=== PATIENT | male | born 1990 | race Caucasian/White ===

== ENCOUNTER → 2019-04-13 20:35 | Emergency (ER) | payer OTHER ==
[~2019-04-13 20:35] MED LIST: Penicillin VK TAB* 250 MG PO ONE
[2019-04-13 20:41] VITALS: BP 123/76
--- NOTE | 2019-04-13 21:09 | ED ---
Throat Pain/Nasal Congestion - HPI Summary HPI Summary: Patient complains of right lower dental pain starting yesterday. History of multiple dental caries. Denies purulent drainage from mouth, fever, cough, sore throat, CV, SOB, N/V/V abdominal pain, change in urine, change in BM - History of Current Complaint Chief Complaint: EDDentalPain Time Seen by Provider: 04/13/19 20:51 Hx Obtained From: Patient Onset/Duration: Gradual Onset, Lasting Days Severity: Moderate Associated Signs And Symptoms: Positive: Negative Cough: None - Allergies/Home Medications Allergies/Adverse Reactions: Allergies Allergy/AdvReac Type Severity Reaction Status Date / Time Cephalosporins Allergy Hives Verified 04/13/19 20:41 Home Medications: Home Medications ALPRAZolam [Alprazolam Xr] 1 mg PO BEDTIME 04/13/19 [History Confirmed 04/13/19] Buprenorphine HCl/Naloxone HCl [Buprenorp-Nalox 8-2 mg Sl Film] 1 film SL FILM BEDTIME 04/13/19 [History Confirmed 04/13/19] Mirtazapine 30 mg PO BEDTIME 04/13/19 [History Confirmed 04/13/19] cloNIDine TAB* [Catapres 0.1 MG TAB*] 0.2 mg PO DAILY 04/13/19 [History Confirmed 04/13/19] tiZANidine TAB* [Zanaflex TAB*] 4 mg PO BEDTIME 04/13/19 [History Confirmed 09/21] PMH/Surg Hx/FS Hx/Imm Hx Endocrine/Hematology History: Denies: Hx Anticoagulant Therapy Cardiovascular History: Denies: Hx Pacemaker/ICD Respiratory History: Reports: Hx Asthma History: Denies: Hx Dialysis Sensory History: Denies: Hx Legally Blind Opthamlomology History: Denies: Hx Eye Prosthesis EENT History: Denies: Hx Deafness Neurological History: Denies: Hx Dementia Psychiatric History: Denies: Hx Autism Infectious Disease History: No Infectious Disease History: Denies: Traveled Outside the [place] in Last 30 Days - Family History Known Family History: Positive: Non-Contributory - Social History Alcohol Use: None Substance Use Type: Reports: None Smoking Status (MU): Never Smoked Tobacco Review of Systems Constitutional: Negative Eyes: Negative Positive: Dental Pain Cardiovascular: Negative Respiratory: Negative Gastrointestinal: Negative Genitourinary: Negative Musculoskeletal: Negative Skin: Negative Neurological: Negative Psychological: Normal All Other Systems Reviewed And Are Negative: Yes Physical Exam - Summary Physical Exam Summary: No oral lesions, apical abscess, purulent drainage noted. Multiple dental caries. Triage Information Reviewed: Yes Vital Signs On Initial Exam: Initial Vitals Temp Pulse Resp BP Pulse Ox 98.4 F 70 16 123/76 98 04/13/19 20:38 04/13/19 20:38 04/13/19 20:38 04/13/19 20:38 04/13/19 20:38 Vital Signs Reviewed: Yes Appearance: Positive: Well-Appearing Skin: Positive: Warm Head/Face: Positive: Normal Head/Face Inspection Eyes: Positive: Normal ENT: Positive: Normal ENT inspection Dental: Positive: Gross Decay/Caries @. Negative: Dental Fracture @, Abscess @ , Bleeding Neck: Positive: Supple Respiratory/Lung Sounds: Positive: Clear to Auscultation Cardiovascular: Positive: Normal Abdomen Description: Positive: Nontender Musculoskeletal: Positive: Normal Neurological: Positive: Normal Psychiatric: Positive: Normal AVPU Assessment: Alert - Nette Coma Scale Best Eye Response: 4 - Spontaneous Best Motor Response: 6 - Obeys Commands Best Verbal Response: 5 - Oriented Coma Scale Total: 15 Diagnostics - Vital Signs Vital Signs Temp Pulse Resp BP Pulse Ox 04/13/19 20:38 98.4 F 70 16 123/76 98 - Laboratory Lab Statement: Any lab studies that have been ordered have been reviewed, and results considered in the medical decision making process. EENT Course/Dx - Course Course Of Treatment: Patient complains of right lower dental pain starting yesterday. History of multiple dental caries. Denies purulent drainage from mouth, fever, cough, sore throat, CV, SOB, N/V/V abdominal pain, change in urine , change in BM. Physical exam:No oral lesions, apical abscess, purulent drainage noted. Multiple dental caries. Vital signs within normal limits. Rx for Pen-Vee K. Tylenol and ibuprofen for pain. Follow-up with dentist. - Diagnoses Provider Diagnoses: Pain, dental, Jaw pain Discharge - Sign-Out/Discharge Documenting (check all that apply): Patient Departure Patient Received Moderate/Deep Sedation with Procedure: No - Discharge Plan Condition: Stable Disposition: HOME Prescriptions: Ibuprofen [Ibu] 800 mg PO TID 7 Days #20 tablet Penicillin VK 500 MG TAB(NF) [Penicillin VK 500 mg Tab] 500 mg PO QID 7 Days # 28 tab Patient Education Materials: Toothache (ED) Referrals: Gato BETTS,Maicol Zurita [Primary Care Provider] - Additional Instructions: Follow-up with your dentist as soon as possible. Take antibiotics as directed. Alternate ibuprofen 800 mg and Tylenol 650 mg every 3 hours for pain. Return to the ED for any new or worsening symptoms. - Billing Disposition and Condition Condition: STABLE Disposition: Home
== END | disposition home or self-care (01) ==
LOC: ED 20:35
DX: K08.89 Other specified disorders of teeth and supporting structures (principal); K02.9 Dental caries, unspecified; R68.84 Jaw pain; Z88.1 Allergy status to other antibiotic agents
CPT/HCPCS: 99282; A9270-GY

== ENCOUNTER 2019-04-22 12:23 | Emergency (ER) | payer OTHER ==
[2019-04-22 14:49] VITALS: BP 136/85
--- NOTE | 2019-04-22 15:10 | ED ---
Throat Pain/Nasal Congestion - HPI Summary HPI Summary: Patient is a 28-year-old male presenting to the ED with decreased hearing in the right ear. He endorses a feeling of "fullness." He denies any pain. He states he has been sick for the past week and a half and is currently on antibiotics. He states despite the antibiotics, he continues to have decreased hearing. He denies any dizziness or lightheadedness. Symptoms are worse with positioning. He states symptoms are worse with lying flat and better in the upright position. Denies any rhinorrhea. Denies any tearing from the eyes. - History of Current Complaint Chief Complaint: EDEarPain Time Seen by Provider: 04/22/19 13:17 Hx Obtained From: Patient Onset/Duration: Gradual Onset Severity: Moderate Associated Signs And Symptoms: Positive: Negative - Epiglottits Risk Factors Epiglottis Risk Factors: Negative - Allergies/Home Medications Allergies/Adverse Reactions: Allergies Allergy/AdvReac Type Severity Reaction Status Date / Time Cephalosporins Allergy Hives Verified 04/22/19 12:49 PMH/Surg Hx/FS Hx/Imm Hx Previously Healthy: Yes Endocrine/Hematology History: Denies: Hx Anticoagulant Therapy Cardiovascular History: Denies: Hx Pacemaker/ICD Respiratory History: Reports: Hx Asthma History: Denies: Hx Dialysis Sensory History: Denies: Hx Eye Prosthesis, Hx Legally Blind, Hx Deafness Opthamlomology History: Denies: Hx Eye Prosthesis, Hx Legally Blind Neurological History: Denies: Hx Dementia Psychiatric History: Denies: Hx Autism - Immunization History Hx Pertussis Vaccination: No Immunizations Up to Date: Yes Infectious Disease History: No Infectious Disease History: Denies: Traveled Outside the [place] in Last 30 Days - Family History Known Family History: Positive: Non-Contributory - Social History Occupation: Unemployed Lives: With Family Alcohol Use: None Hx Substance Use: No Substance Use Type: Reports: None Smoking Status (MU): Never Smoked Tobacco Review of Systems Constitutional: Negative Negative: Fever, Chills, Fatigue, Skin Diaphoresis Positive: Ear Ache - right ear fullness Negative: Palpitations, Chest Pain Negative: Shortness Of Breath, Cough Genitourinary: Negative Positive: no symptoms reported, see HPI Negative: Arthralgia, Myalgia Skin: Negative Neurological: Negative All Other Systems Reviewed And Are Negative: Yes Physical Exam Triage Information Reviewed: Yes Vital Signs On Initial Exam: Initial Vitals Temp Pulse Resp BP Pulse Ox 98.8 F 68 14 133/85 97 04/22/19 12:44 04/22/19 12:44 04/22/19 12:44 04/22/19 12:44 04/22/19 12:44 Vital Signs Reviewed: Yes Appearance: Positive: Well-Appearing, Well-Nourished Skin: Positive: Warm, Skin Color Reflects Adequate Perfusion Head/Face: Positive: Normal Head/Face Inspection Eyes: Positive: Conjunctiva Clear ENT: Positive: Pharynx normal, Other - ear fullness to the R ear. Negative: Pharyngeal erythema, Nasal congestion, TM bulging, TM dull, TM red, Tonsillar swelling, Tonsillar exudate, Sinus tenderness Respiratory/Lung Sounds: Positive: Clear to Auscultation, Breath Sounds Present Cardiovascular: Positive: RRR Musculoskeletal: Positive: Strength/ROM Intact Neurological: Positive: Speech Normal Psychiatric: Positive: Affect/Mood Appropriate Diagnostics - Vital Signs Vital Signs Temp Pulse Resp BP Pulse Ox 04/22/19 14:40 97.5 F 58 14 136/85 99 04/22/19 12:44 98.8 F 68 14 133/85 97 - Laboratory Lab Statement: Any lab studies that have been ordered have been reviewed, and results considered in the medical decision making process. EENT Course/Dx - Course Course Of Treatment: During this course of treatment, the patient is evaluated for right sided decreased hearing. Denies any pain to this year. He states he feels fluid shifting inside the ear if he is lying flat or sitting upright. Symptoms are better with sitting upright, however symptoms remain despite sitting upright. He states he is unable to hear out of this ear. He has never had this issue in the past. Denies any drainage from the ear. He denies any fevers, sweats, chills. Vital signs stable on arrival. Physical examination, patient appears well, nontoxic appearing. No conjunctival injection or rhinorrhea. Lungs CTA. RRR. TMs bilaterally show no erythema. To the right ear there are signs of serous otitis with fluid behind TM. No cerumen impaction. Patient is encouraged follow-up with ENT if symptoms do not resolve. He is given activities for releasing pressure in the ears as well as encouraged steroids, afrin and zac to try and reduce the fluid. - Diagnoses Provider Diagnoses: Serous otitis media Discharge - Sign-Out/Discharge Documenting (check all that apply): Patient Departure Patient Received Moderate/Deep Sedation with Procedure: No - Discharge Plan Condition: Stable Disposition: HOME Prescriptions: Fexofenadine/Pseudoephedrine [Zac-D 24 Hour Tablet] 1 each PO DAILY #10 tab.er.24h Oxymetazoline 0.05% NASAL SPR* [Afrin 0.05% NASAL SPRAY*] 1 spray NASAL Q8H #1 btl predniSONE TAB* [Deltasone TAB*] 50 mg PO DAILY #5 tab MDD 1 Patient Education Materials: Serous Otitis Media (ED) Referrals: Richard Evans MD [Medical Doctor] - Gato BETTS,Maicol Zurita [Primary Care Provider] - Additional Instructions: Try forced exhalation with closed mouth and nose, blowing up a balloon through each nostril or bearing down to release pressure Prednisone once daily x 5 days zac once daily x 10 days afrin three times daily - Billing Disposition and Condition Condition: STABLE Disposition: Home
== END 2019-04-22 14:40 | disposition home or self-care (01) ==
LOC: ED 12:23
DX: H65.91 Unspecified nonsuppurative otitis media, right ear (principal)
CPT/HCPCS: 99282

== ENCOUNTER 2019-07-06 00:44 | Emergency (ER) | payer OTHER ==
[2019-07-06] MEDS ORDERED: Penicillin VK TAB* 250 MG PO ONE ×2 (01:11→01:12)
--- NOTE | 2019-07-06 01:16 | ED ---
Throat Pain/Nasal Congestion - HPI Summary HPI Summary: 28-year-old male presents with dental pain for the past couple days. He has a history of dental infections. He is waiting to get implants to have teeth removed. has had this in the past. States needs an antibiotic to help fight the infection. Denies any swelling. No fevers. No chest pain or shortness breath. No sore throat. has pain on bilateral lower teeth. Has been using peroxide to rinse his mouth. Has been taking Excedrin for the pain. He is on Suboxone. No fevers. - History of Current Complaint Chief Complaint: EDDentalPain Time Seen by Provider: 07/06/19 01:02 - Allergies/Home Medications Allergies/Adverse Reactions: Allergies Allergy/AdvReac Type Severity Reaction Status Date / Time Cephalosporins Allergy Hives Verified 07/06/19 00:46 PMH/Surg Hx/FS Hx/Imm Hx Endocrine/Hematology History: Denies: Hx Anticoagulant Therapy Cardiovascular History: Denies: Hx Pacemaker/ICD Respiratory History: Reports: Hx Asthma History: Denies: Hx Dialysis Sensory History: Denies: Hx Eye Prosthesis, Hx Legally Blind, Hx Deafness Opthamlomology History: Denies: Hx Eye Prosthesis, Hx Legally Blind Neurological History: Denies: Hx Dementia Psychiatric History: Denies: Hx Autism Infectious Disease History: No Infectious Disease History: Denies: Traveled Outside the [place] in Last 30 Days - Family History Known Family History: Positive: Non-Contributory - Social History Alcohol Use: None Hx Substance Use: No Substance Use Type: Reports: None Smoking Status (MU): Never Smoked Tobacco Review of Systems Negative: Fever Positive: Dental Pain Negative: Chest Pain Negative: Shortness Of Breath All Other Systems Reviewed And Are Negative: Yes Physical Exam Triage Information Reviewed: Yes Vital Signs On Initial Exam: Initial Vitals Temp Pulse Resp BP Pulse Ox 97.8 F 75 16 135/96 98 07/06/19 00:45 07/06/19 00:45 07/06/19 00:45 07/06/19 00:45 07/06/19 00:45 Vital Signs Reviewed: Yes Appearance: Positive: Well-Appearing Skin: Positive: Warm, Dry Head/Face: Positive: Normal Head/Face Inspection Eyes: Positive: Normal, EOMI, DAMON, Conjunctiva Clear ENT: Positive: Normal ENT inspection, Pharynx normal, TMs normal Dental: Positive: Percussion Tenderness @ - lower posterior teeth on bilateral sides, Gross Decay/Caries @ - throughout. Negative: Abscess @ Neck: Positive: Supple, Nontender, No Lymphadenopathy Respiratory/Lung Sounds: Positive: Clear to Auscultation, Breath Sounds Present Cardiovascular: Positive: Normal, RRR Abdomen Description: Positive: Nontender, Soft Bowel Sounds: Positive: Present Musculoskeletal: Positive: Normal Neurological: Positive: Normal Psychiatric: Positive: Normal Diagnostics - Vital Signs Vital Signs Temp Pulse Resp BP Pulse Ox 07/06/19 00:45 97.8 F 75 16 135/96 98 - Laboratory Lab Statement: Any lab studies that have been ordered have been reviewed, and results considered in the medical decision making process. EENT Course/Dx - Course Course Of Treatment: 28-year-old male presents with dental pain for the past couple days. He has a history of dental infections. He is waiting to get implants to have teeth removed. has had this in the past. States needs an antibiotic to help fight the infection. Denies any swelling. No fevers. No chest pain or shortness breath. No sore throat. States has pain on bilateral lower teeth. Has been using peroxide to rinse his mouth. Has been taking Excedrin for the pain. He is on Suboxone. No fevers. On exam has poor dentition noted. No abscess seen. Will treat with penicillin. Gave chlorhexidine mouthwash to use. Told to follow up with dentist. Patient understands agrees with plan. - Differential Diagnoses Differential Diagnoses: Dental Abscess, Dental Caries, Fractured Tooth - Diagnoses Provider Diagnoses: Dental infection Discharge ED - Sign-Out/Discharge Documenting (check all that apply): Patient Departure Patient Received Moderate/Deep Sedation with Procedure: No - Discharge Plan Condition: Good Disposition: HOME Prescriptions: Chlorhexidine MOUTHWASH 0.12%* [Peridex Mouth Wash 0.12%*] 15 ml MT BID #1 btl Penicillin VK TAB* [Penicillin VK 250 mg Tab*] 500 mg PO QID #28 tab Patient Education Materials: Toothache (ED) Referrals: Gato BETTS,Maicol Zurita [Primary Care Provider] - Additional Instructions: Take antibiotic four a day for 7 days use clorhexidine 15ml after brushing teeth daily Use ibuprofen or tyenlol for pain every 6 hours Follow up with dentist as soon as possible Return to ED if develop any new or worsening symptoms - Billing Disposition and Condition Condition: GOOD Disposition: Home
[2019-07-06 01:26] VITALS: BP 132/54
== END 2019-07-06 01:25 | disposition home or self-care (01) ==
LOC: ED 00:44
DX: K04.7 Periapical abscess without sinus (principal); J45.909 Unspecified asthma, uncomplicated; Z79.899 Other long term (current) drug therapy; Z88.1 Allergy status to other antibiotic agents
CPT/HCPCS: 99282; A9270-GY

== ENCOUNTER 2019-07-30 18:34 | Emergency (ER) | payer OTHER ==
--- NOTE | 2019-07-30 19:46 | ED ---
Throat Pain/Nasal Congestion - HPI Summary HPI Summary: 28 year old M presenting to [facility] complains of worsening dental pain in his bilateral lower and left upper third molars rated 5/10 in severity with associated diaphoresis x1 month. Symptoms aggravated by nothing. Symptoms alleviated by antibiotics. The patient states he has taken 2 courses of antibiotics over the last month, the first being penicillin for 2.5 weeks followed by the second being Augmentin for 10 days which he is currently taking. Patient is followed by Deric Easton. Patient states he saw his dentist last week. Patient states he is in the process of getting his lower molars removed but needs prior authorization from his insurance. Denies fevers. Pain w eating but tolerating PO. - History of Current Complaint Chief Complaint: EDDentalPain Time Seen by Provider: 07/30/19 19:28 Hx Obtained From: Patient Onset/Duration: Still Present - Allergies/Home Medications Allergies/Adverse Reactions: Allergies Allergy/AdvReac Type Severity Reaction Status Date / Time Cephalosporins Allergy Hives Verified 07/30/19 18:41 Iodinated Contrast Media Allergy Nausea And Verified 07/30/19 20:46 Vomiting PMH/Surg Hx/FS Hx/Imm Hx Respiratory History: Reports: Hx Asthma Sensory History: Denies: Hx Legally Blind, Hx Deafness Opthamlomology History: Denies: Hx Legally Blind - Surgical History Surgery Procedure, Year, and Place: knee - Immunization History Immunizations Up to Date: Yes Infectious Disease History: No Infectious Disease History: Denies: Traveled Outside the [place] in Last 30 Days - Family History Known Family History: Positive: Hypertension, Diabetes - Social History Alcohol Use: Rare Hx Substance Use: No Substance Use Type: Reports: None Smoking Status (MU): Never Smoked Tobacco Review of Systems Positive: Skin Diaphoresis Positive: Dental Pain - bilateral lower and left upper third molars All Other Systems Reviewed And Are Negative: Yes Physical Exam - Summary Physical Exam Summary: Constitutional: Well-developed, Well-nourished, Alert. (-) Distressed. Skin: Warm, Dry HENT: diffuse dental disease with caries of the bilateral lower and left upper third molars, no obvious abscess, no trismus Eyes: Conjunctiva normal Neck: Musculoskeletal ROM normal neck. (-) JVD, (-) Stridor, (-) Nuchal rigidity Cardio: Rhythm regular, rate normal, Heart sounds normal; Intact distal pulses; Radial pulses are 2+ and symmetric. (-) Murmur Pulmonary/Chest wall: Effort normal. (-) Respiratory distress, (-) Wheezes, (-) Rales Abd: Soft, (-) tenderness, (-) Distension, (-) Guarding, (-) Rebound Musculoskeletal: (-) Edema Lymph: (-) Cervical adenopathy Neuro: Alert, Oriented x3 Psych: Patient appears anxious Triage Information Reviewed: Yes Vital Signs On Initial Exam: Initial Vitals Temp Pulse Resp BP Pulse Ox 97.7 F 66 18 157/92 98 07/30/19 18:36 07/30/19 18:36 07/30/19 18:36 07/30/19 18:36 07/30/19 18:36 Vital Signs Reviewed: Yes Diagnostics - Vital Signs Vital Signs Temp Pulse Resp BP Pulse Ox 07/30/19 18:36 97.7 F 66 18 157/92 98 - Laboratory Result Diagrams: 07/30/19 19:57 07/30/19 19:57 Lab Statement: Any lab studies that have been ordered have been reviewed, and results considered in the medical decision making process. Re-Evaluation - Re-Evaluation First Eval Re-Evaluation Time: 20:48 Comment: patient states that last time he received contrast, he became nauseous so we will give Zofran. no trouble swallowing or breathing last time he received contrast EENT Course/Dx - Course Course Of Treatment: 28-year-old male dental caries presents with bilateral dental pain. Physical examination w poor dentition, multiple caries, no obvious abscess. Patient insisting on antibiotics however lower suspicion for abscess given multiple doses of antiemetics most recently amoxicillin. We'll check labs and a CT face. If negative patient needs to follow-up with dentist. - Diagnoses Provider Diagnoses: Pain, dental Discharge ED - Sign-Out/Discharge Documenting (check all that apply): Sign-Out Patient Signing out patient TO: Barak Rich - Awaiting CT Maxillofacial Patient Received Moderate/Deep Sedation with Procedure: No - Discharge Plan Condition: Stable Disposition: HOME Patient Education Materials: Toothache (ED) Referrals: Gato BETTS,Maicol Zurita [Primary Care Provider] - Additional Instructions: You were seen in the emergency department for dental pain. Your CT scan showed * If any studies were not completed at the time of discharge you will be called with the relevant results. Please follow up with your dentist and primary care doctor in next 2-3 days and return to emergency department for worsening pain, fevers, trouble eating/ drinking or concerning symptoms. It was a pleasure taking care of you today. - Billing Disposition and Condition Condition: STABLE Disposition: Home - Attestation Statements Document Initiated by Josy: Yes Documenting Scribe: Amber Duran Provider For Whom Josy is Documenting (Include Credential): Mahi Izaguirre MD Scribe Attestation: I, Amber Duran, scribed for Mahi Izaguirre MD on 07/30/19 at 2202. Scribe Documentation Reviewed: Yes Provider Attestation: The documentation as recorded by the Amber franklin accurately reflects the service I personally performed and the decisions made by me, Mahi Izaguirre MD Status of Scribe Document: Viewed
[2019-07-30] MEDS ORDERED: Ketorolac INJ* 30 MG/ML 1 ML VIAL IV ONE (19:51)
[2019-07-30 20:08] LABS: ABS Eosinophils 0.1 10^3/ul (0-0.6); ABS Lymphocytes 2.7 10^3/ul (1.0-4.8); ABS Monocytes 0.5 10^3/ul (0-0.8); ABS Neutrophils 4.8 10^3/ul (1.5-7.7); Eosinophil % 1.8 %; Hematocrit 39 % (42-52); Hemoglobin 13.9 g/dL (14.0-18.0); Lymphocyte % 33.1 %; Mean Corpuscular HGB Conc 35 g/dL (31-36); Mean Corpuscular Hemoglobin 30 pg (27-31); Mean Corpuscular Volume 84 fL (80-94); Mean Platelet Volume 7.3 fL (7.4-10.4); Platelet Count 318 10^3/uL (150-450); Red Blood Count 4.72 10^6 /uL (4.18-5.48); Red Cell Distribution Width 13 % (10-15); White Blood Count 8.2 10^3/uL (3.5-10.8)
[2019-07-30 20:22] LABS: BUN/Creatinine Ratio 10.1 (8-20); Calcium 8.9 mg/dL (8.6-10.3); EGFR African American 122.3 (>60); EGFR Non-African American 101.1 (>60); Potassium 3.9 mmol/L (3.5-5.0)
[2019-07-30] MEDS ORDERED: Iohexol 300* (CONTRAST) 10 ML SDV IV ONE (20:34)
[2019-07-30] MEDS ORDERED: diPHENhydraMINE PO* 25 MG PO ONE (20:49)
[2019-07-30] MEDS ORDERED: Ondansetron INJ* 2 MG/ML VIAL IV ONE (20:49)
--- NOTE | 2019-07-30 23:25 | ED ---
Progress - Progress Note Progress Note: Receiving sign-out at shift change [address] Izaguirre pending official maxillfacial CT reading and discharge. Maxillofacial CT: Numerous carious teeth involving the mandible and maxilla. Many of the teeth have perapical lucencies consistent with route abscesses. No soft tissue inflammation. No soft tissue abscess. ED Provider has reviewed this report. A plan for discharge was discussed with the patient and he was agreeable with this plan. Re-Evaluation - Re-Evaluation First Eval Re-Evaluation Time: 20:48 Comment: patient states that last time he received contrast, he became nauseous so we will give Zofran. no trouble swallowing or breathing last time he received contrast Course/Dx - Course Course Of Treatment: ]Receiving sign-out at shift change [address] Izaguirre pending official maxillfacial CT reading and disposition. Maxillofacial CT: Numerous carious teeth involving the mandible and maxilla. Many of the teeth have perapical lucencies consistent with route abscesses. No soft tissue inflammation. No soft tissue abscess. A plan for discharge was discussed with the patient and he was agreeable with this plan. - Diagnoses Provider Diagnoses: Pain, dental Discharge ED - Sign-Out/Discharge Documenting (check all that apply): Patient Departure - Disharge Receiving patient FROM: Mahi Izaguirre Patient Received Moderate/Deep Sedation with Procedure: No - Discharge Plan Condition: Stable Disposition: HOME Patient Education Materials: Toothache (ED) Referrals: Gato BETTS,Maicol Zurita [Primary Care Provider] - Additional Instructions: You were seen in the emergency department for dental pain. Your CT scan showed no large discrete abscess, just a lot of perodontal disease. If any studies were not completed at the time of discharge you will be called with the relevant results. Please follow up with your dentist and primary care doctor in next 2-3 days and return to emergency department for worsening pain, fevers, trouble eating/ drinking or concerning symptoms. It was a pleasure taking care of you today. - Billing Disposition and Condition Condition: STABLE Disposition: Home - Attestation Statements Document Initiated by Kalibe: Yes Documenting Scribe: Hugh Crane Provider For Whom Josy is Documenting (Include Credential): Barak Rich MD Scribe Attestation: I, Hugh Crane, scribed for Barak Rich MD on 08/05/19 at 1854. Scribe Documentation Reviewed: Yes Provider Attestation: The documentation as recorded by the scribe, Hugh Crane accurately reflects the service I personally performed and the decisions made by me, Barak Rich MD Status of Josy Document: Viewed
[2019-07-30 23:36] VITALS: BP 126/93
== END 2019-07-30 23:35 | disposition home or self-care (01) ==
LOC: ED 18:34
DX: K08.89 Other specified disorders of teeth and supporting structures (principal); J45.909 Unspecified asthma, uncomplicated; Z88.1 Allergy status to other antibiotic agents; Z91.041 Radiographic dye allergy status
CPT/HCPCS: 36415; 70487; 80048; 85025; 96374; 96375; 99282; A9270-GY; J1885; J2405; Q9967